=== PATIENT | female | born 1960 | race African-American/Black ===

== ENCOUNTER 2016-10-20 12:25 | Emergency (ER) | payer MEDICAID, OTHER ==
[~2016-10-20] VITALS: Ht 162.6 cm; Wt 56.0 kg
[2016-10-20] MEDS ORDERED: ESOM40CA PO (12:34)
[2016-10-20] MEDS ORDERED: SODIUM CHLORIDE 0.9% 1,000 ML IV ONE (14:08)
[2016-10-20] MEDS ORDERED: MORPHINE SULFATE 4 MG/ML CPJ (NOT FOR IM USE) IV STA (14:08)
[2016-10-20] MEDS ORDERED: MAGNESIUM/ALUMINUM HYDROXIDE/SIMETHICONE 30ML UDC PO STA (14:08)
[2016-10-20] MEDS ORDERED: ONDANSETRON HCL 4MG/2ML VIAL IV STA (14:08)
[2016-10-20 14:26] LABS: BASOPHILS % 1.2 % (0.0-2.0); EOSINOPHILS % 4.7 % (0.0-5.0); HEMATOCRIT. 29.7 % (36.0-48.0); HEMOGLOBIN. 9.7 g/dL (12.0-16.0); LYMPHOCYTES % 16.1 % (20.0-50.0); MEAN CORPUSCULAR HEMOGLOBIN 29.3 pg (28.0-32.0); MEAN CORPUSCULAR VOLUME 89.4 fL (81.0-99.0); MONOCYTES % 5.1 % (2.0-8.0); NEUTROPHILS % 72.9 % (40.0-76.0); PLATELET 340 x1000/uL (130-400); RED BLOOD CELL COUNT 3.33 mill/uL (4.2-5.4); RED CELL DISTRIBUTION WIDTH 17.2 % (11.6-14.6)
[2016-10-20 14:30] VITALS: BP 160/87
[2016-10-20 14:33] LABS: PROTHROMBIN TIME 10.8 sec (9.4-11.6)
[2016-10-20 14:34] LABS: CHLORIDE 105 mEq/L (98-107)
[2016-10-20 14:42] LABS: CARBON DIOXIDE 28 mEq/L (21-32)
[2016-10-20 14:55] LABS: CLARITY URINE CLOUDY (CLEAR); COLOR URINE YELLOW (YELLOW); GLUCOSE URINE NEGATIVE (NEGATIVE); KETONES URINE NEGATIVE (NEGATIVE); LEUKOCYTE ESTERASE URINE NEGATIVE (NEGATIVE); NITRITE URINE NEGATIVE (NEGATIVE); OCCULT BLOOD URINE NEGATIVE (NEGATIVE); PH URINE 7.5 (4.5-8.0); PROTEIN URINE 1+ (NEGATIVE); SPECIFIC GRAVITY URINE 1.019 (1.005-1.030); UROBILINOGEN URINE 0.2 E.U./dL (0.2-1.0)
[2016-10-20 15:19] LABS: *AMPHETAMINES SCREEN URINE NEGATIVE (NEGATIVE); *BARBITURATES SCREEN URINE NEGATIVE (NEGATIVE); *BENZODIAZEPINES SCREEN URINE NEGATIVE (NEGATIVE); *COCAINE SCREEN URINE NEGATIVE (NEGATIVE); CANNABINOID URINE SCREEN NEGATIVE (NEGATIVE); METHADONE URINE SCREEN NEGATIVE (NEGATIVE); OPIATES URINE SCREEN NEGATIVE (NEGATIVE); PHENCYCLIDINE URINE SCREEN NEGATIVE (NEGATIVE)
== END 2016-10-20 17:52 | disposition home or self-care (01) ==
LOC: ER 13:19
DX: K27.9 Peptic ulcer, site unspecified, unspecified as acute or chronic, without hemorrhage or perforation (principal); R10.9 Unspecified abdominal pain
CPT/HCPCS: 36415; 74176; 80053; 80305; 81001; 81025; 83690; 85025; 85610; 96361; 96374; 96375; 99285; J2270; J2405; J7030

== ENCOUNTER 2016-10-22 21:37 | Inpatient (IN) | payer MEDICAID, OTHER ==
[~2016-10-22] VITALS: Ht 152.4 cm; Wt 49.9 kg
[~2016-10-22 21:37] MED LIST: ESOM40CA PO
[2016-10-22] MEDS ORDERED: FAMOTIDINE 20MG/2ML VIAL IV STA (22:49)
[2016-10-22] MEDS ORDERED: ONDANSETRON HCL 4MG/2ML VIAL IV STA (22:49)
[2016-10-22] MEDS ORDERED: MORPHINE SULFATE 4 MG/ML CPJ (NOT FOR IM USE) IV STA (22:49)
[2016-10-22] MEDS ORDERED: SODIUM CHLORIDE 0.9% 1,000 ML IV ONE (22:49)
[2016-10-22 23:17] LABS: BASOPHILS % 0.7 % (0.0-2.0); EOSINOPHILS % 2.8 % (0.0-5.0); HEMATOCRIT. 30.2 % (36.0-48.0); LYMPHOCYTES % 16.9 % (20.0-50.0); MEAN CORPUSCULAR HEMOGLOBIN 29.4 pg (28.0-32.0); MEAN CORPUSCULAR VOLUME 88.8 fL (81.0-99.0); MONOCYTES % 6.9 % (2.0-8.0); NEUTROPHILS % 72.7 % (40.0-76.0); PLATELET 352 x1000/uL (130-400); RED CELL DISTRIBUTION WIDTH 16.8 % (11.6-14.6)
[2016-10-22 23:21] LABS: INR 1.1; PROTHROMBIN TIME 11.2 sec (9.4-11.6)
[2016-10-22 23:23] LABS: HCG SCREEN NEGATIVE
[2016-10-22 23:29] LABS: CARBON DIOXIDE 27 mEq/L (21-32); CHLORIDE 104 mEq/L (98-107); ETHANOL BLOOD < 10 mg/dL; TROPONIN I < 0.02 ng/mL (0.00-0.04)
[2016-10-23] MEDS ORDERED: PANTOPRAZOLE SODIUM 40 MG/VIAL IV ONE (01:15)
[2016-10-23] MEDS ORDERED: CLONIDINE 0.1MG TABLET PO PRN (03:45)
[2016-10-23] MEDS ORDERED: ONDANSETRON HCL 4MG/2ML VIAL IV PRN (03:45)
[2016-10-23] MEDS ORDERED: DIPHENHYDRAMINE 50MG/ML VIAL IV PRN (03:45)
[2016-10-23 04:00] VITALS: BP 143/77
[2016-10-23 05:15] VITALS: BP 143/77
[2016-10-23 07:23] VITALS: BP 132/74
[2016-10-23] MEDS ORDERED: BISM262O28 PO (08:04)
[2016-10-23] MEDS ORDERED: ASPI-1159 PO (08:04)
[2016-10-23] MEDS ORDERED: POLY17PO3 PO (08:04)
[2016-10-23] MEDS ORDERED: ESOM40CA PO (08:04)
[2016-10-23] MEDS ORDERED: NAPR-681 PO (08:04)
[2016-10-23] MEDS ORDERED: LABE100T PO (08:04)
[2016-10-23] MEDS ORDERED: LEVE500T19 PO (08:04)
[2016-10-23] MEDS ORDERED: IBUP-2028 PO (08:04)
[2016-10-23] MEDS ORDERED: AMLO10TA80 PO (08:04)
[2016-10-23] MEDS ORDERED: LACT-36 PO (08:04)
[2016-10-23] MEDS ORDERED: TRAM50TA3 PO (08:04)
[2016-10-23 08:06] LABS: BASOPHILS % 0.7 % (0.0-2.0); EOSINOPHILS % 1.8 % (0.0-5.0); HEMATOCRIT. 26.4 % (36.0-48.0); HEMOGLOBIN. 8.6 g/dL (12.0-16.0); LYMPHOCYTES % 28.2 % (20.0-50.0); MEAN CORPUSCULAR VOLUME 89.1 fL (81.0-99.0); MEAN PLATELET VOLUME 7.4 fl (7.4-10.4); MONOCYTES % 12.2 % (2.0-8.0); NEUTROPHILS % 57.1 % (40.0-76.0); PLATELET 308 x1000/uL (130-400); RED BLOOD CELL COUNT 2.97 mill/uL (4.2-5.4); RED CELL DISTRIBUTION WIDTH 16.9 % (11.6-14.6)
[2016-10-23] MEDS ORDERED: PANTOPRAZOLE SODIUM 40 MG/VIAL IV SCH (09:00)
[2016-10-23] MEDS: LABETALOL HCL 100MG TABLET PO SCH ×2 (09:10→21:14)
[2016-10-23] MEDS: AMLODIPINE 10MG TABLET PO SCH (09:10)
[2016-10-23] MEDS: LEVETIRACETAM 500MG TABLET PO SCH ×2 (09:10→21:14)
[2016-10-23] MEDS: SODIUM CHLORIDE 0.9% 1,000 ML IV SCH ×2 (10:40→21:26)
[2016-10-23] MEDS ORDERED: SODIUM CHLORIDE 0.9% 10ML VIAL ONE (11:53)
[2016-10-23 11:55] VITALS: BP 113/72
[2016-10-23] MEDS ORDERED: FENTANYL CITRATE/PF 50MCG/ML 2ML VIAL ONE (13:51)
[2016-10-23] MEDS ORDERED: SIMETHICONE 40 MG/0.6 ML 30ML ONE (13:51)
[2016-10-23] MEDS ORDERED: MIDAZOLAM HCL 5 MG/5 ML VIAL ONE (13:51)
[2016-10-23] MEDS ORDERED: MIDAZOLAM HCL 5 MG/5 ML VIAL IV PRN (15:11)
[2016-10-23] MEDS ORDERED: FENTANYL CITRATE/PF 50MCG/ML 2ML VIAL IV PRN (15:11)
[2016-10-23 20:00] VITALS: BP 143/83
[2016-10-23] MEDS: OMEPRAZOLE 20MG CAPSULE EXTENDED RELEASE PO SCH (21:10)
[2016-10-23] MEDS ORDERED: BISACODYL 10MG SUPP PR NR (22:15)
[2016-10-23] MEDS ORDERED: LACTULOSE 20G/30ML UDC PO NR (22:15)
[2016-10-24] VITALS: BP 127/91
[2016-10-24 01:28] LABS: CLARITY URINE CLEAR (CLEAR); COLOR URINE YELLOW (YELLOW); GLUCOSE URINE NEGATIVE (NEGATIVE); KETONES URINE NEGATIVE (NEGATIVE); LEUKOCYTE ESTERASE URINE NEGATIVE (NEGATIVE); NITRITE URINE NEGATIVE (NEGATIVE); OCCULT BLOOD URINE NEGATIVE (NEGATIVE); PROTEIN URINE NEGATIVE (NEGATIVE); SPECIFIC GRAVITY URINE 1.014 (1.005-1.030)
[2016-10-24] MEDS: ACETAMINOPHEN 325MG TABLET PO PRN ×3 (02:49→14:45)
[2016-10-24 02:50] LABS: *AMPHETAMINES SCREEN URINE NEGATIVE (NEGATIVE); *BARBITURATES SCREEN URINE NEGATIVE (NEGATIVE); *COCAINE SCREEN URINE NEGATIVE (NEGATIVE); CANNABINOID URINE SCREEN NEGATIVE (NEGATIVE); METHADONE URINE SCREEN NEGATIVE (NEGATIVE); OPIATES URINE SCREEN PRESUMTIVE POSITIVE (NEGATIVE); PHENCYCLIDINE URINE SCREEN NEGATIVE (NEGATIVE)
[2016-10-24 03:19] LABS: *BENZODIAZEPINES SCREEN URINE PRESUMTIVE POSITIVE (NEGATIVE)
[2016-10-24] MEDS: OMEPRAZOLE 20MG CAPSULE EXTENDED RELEASE PO SCH (05:57)
[2016-10-24 08:38] VITALS: BP 103/53
[2016-10-24] MEDS: LABETALOL HCL 100MG TABLET PO SCH (09:08)
[2016-10-24] MEDS: LEVETIRACETAM 500MG TABLET PO SCH (09:08)
[2016-10-24] MEDS: AMLODIPINE 10MG TABLET PO SCH (09:10)
[2016-10-24] MEDS: SODIUM CHLORIDE 0.9% 1,000 ML IV SCH (11:46)
[2016-10-24 12:30] VITALS: BP 111/52
[2016-10-24 16:02] VITALS: BP 111/52
== END 2016-10-24 16:35 | disposition home or self-care (01) | DRG 241 ==
LOC: ER 21:54 → 5WST 10-23 01:01 → EDBEDREQ 10-23 01:05 → EDBEDREQTM 10-23 01:05
PROVIDERS: ADMIT Internal Medicine; ATTEND Internal Medicine
PROC: 0DB68ZX Excision of Stomach, Via Natural or Artificial Opening Endoscopic, Diagnostic (ICD-10-PCS; principal; 2016-10-23 15:00)
DX: K25.4 Chronic or unspecified gastric ulcer with hemorrhage (principal); E83.52 Hypercalcemia; I10 Essential (primary) hypertension; J44.9 Chronic obstructive pulmonary disease, unspecified; K29.60 Other gastritis without bleeding; F19.10 Other psychoactive substance abuse, uncomplicated; G40.909 Epilepsy, unspecified, not intractable, without status epilepticus; K59.00 Constipation, unspecified; D64.9 Anemia, unspecified; F17.200 Nicotine dependence, unspecified, uncomplicated; Z79.899 Other long term (current) drug therapy; Z86.73 Personal history of transient ischemic attack (TIA), and cerebral infarction without residual deficits; Z87.11 Personal history of peptic ulcer disease
CPT/HCPCS: 36415; 71010; 74000; 80053; 80305; 81003; 83605; 83690; 83880; 84484; 84703; 85025; 85610; 88305; 88312; 88313; 93005; 96361; 96374; 96375; 99152; 99285; A4216; C9113; G0482; J2250; J2270; J2405; J3010; J3490; J7030